=== PATIENT | female | born 1985 | race Caucasian/White ===

== ENCOUNTER 2019-06-29 13:48 | Emergency (ER) | payer OTHER ==
[2019-06-29 13:52] VITALS: BP 138/92; PULSE 82; TEMP 98.3; BMI 32.3
[2019-06-29] MEDS ORDERED: KETOROLAC TROMETHAMINE 30 MG/1 ML VIAL IVPUSH ONE (14:17)
[2019-06-29] MEDS ORDERED: METOCLOPRAMIDE HCL INJECTION 10 MG/2 ML VIAL IVPUSH ONE (14:18)
[2019-06-29] MEDS ORDERED: KETOROLAC TROMETHAMINE 15 MG/ML VIAL ONE (14:22)
[2019-06-29] MEDS ORDERED: METOCLOPRAMIDE HCL INJECTION 10 MG/2 ML VIAL ONE (14:22)
[2019-06-29] MEDS ORDERED: SODIUM CHLORIDE 0.9% 500 ML INFUS.BAG IV ONE (14:22)
--- NOTE | 2019-06-29 14:26 | PDOC ---
History of Present Illness - General Chief Complaint: Headache Stated Complaint: HEADACHE X3 DAYS Time Seen by Provider: 06/29/19 14:06 - History of Present Illness Initial Comments: 06/29/19 14:22 CHIEF COMPLAINT: headache HISTORY OF PRESENT ILLNESS: 33 yo F with no significant PMH [facility] headache x 3 days. Patient denies any nausea or photophobia and reports that the pain is currently to her b/l temples and feels like "throbbing." Denies any change in vision, LOC, weakness. No recent travel or sick contacts. PAST MEDICAL HISTORY: Denies past medical history FAMILY HISTORY: Denies SOCIAL HISTORY: Denies tobacco, alcohol, illicit drug use. SURGICAL HISTORY: Denies ALLERGIES: No known drug allergies REVIEW OF SYSTEMS General/Constitutional: Denies fever or chills. Denies weakness, weight change. HEENT: Denies change in vision. Denies ear pain or discharge. Denies sore throat. Cardiovascular: Denies chest pain or shortness of breath. Respiratory: Denies cough, wheezing, or hemoptysis. Gastrointestinal: Denies nausea, vomiting, diarrhea or constipation. Denies rectal bleeding. Genitourinary: Denies dysuria, frequency, or change in urination. Musculoskeletal: Denies joint or muscle swelling or pain. Denies neck or back pain. Skin and breasts: Denies rash or easy bruising. Neurologic:Headache x 3 days. Denies vertigo, loss of consciousness, or loss of sensation. Psychiatric: Denies depression or anxiety. PHYSICAL EXAM General Appearance: Well-appearing, appropriately dressed. No apparent distress , no intoxication. HEENT: EOMI, PERRLA, normal ENT inspection, normal voice, TMs normal, pharynx normal. No conjunctival pallor. No photophobia, scleral icterus. Neck: Supple. Trachea midline. No tenderness, rigidity, carotid bruit, stridor , lymphadenopathy, or thyromegaly. Respiratory/Chest: Lungs CTAB. No shortness of breath, chest tenderness, respiratory distress, accessory muscle use. No crackles, rales, rhonchi, stridor , wheezing, dullness Cardiovascular: RRR. S1, S2. No JVD, murmur, bradycardia, tachycardia. Vascular Pulses: Dorsalis-Pedis (R): 2+, Dorsalis-Pedis (L): 2+ Gastrointestinal/Abdominal: Normal bowel sounds. Abdomen soft, non-distended. No tenderness or rebound tenderness. No organomegaly, pulsatile mass, guarding , hernia, hepatomegaly, splenomegaly. Lymphatic: No adenopathy, tenderness. Musculoskeletal/Extremities: Normal inspection. FROM of all extremities, normal capillary refill. Pelvis Stable. No CVA tenderness. No tenderness to extremities, pedal edema, swelling, erythema or deformity. Integumentary: Appropriate color, dry, warm. No cyanosis, erythema, jaundice or rash Neurologic: chart snatcher II-XII intact. Fully oriented, alert. Appropriate mood/affect. Motor strength 5/5. No appreciable EOM palsy, facial droop or sensory deficit. A&Ox3, follow commands, respond appropriately CN2-12: conjugate gaze, pupil round, equal and reactive to light. Visual field full to confrontation. EOMI without nystagmus, pursuit is smooth without saccade. Facial sensation and muscle activation intact bilaterally. Hearing intact bilaterally. Palate elevate symmetrically. Shoulder shrug and neck turn full strength. Tongue protrude midline. Motor: UE and LE strength 5/5 throughout bilaterally. Muscle tone and bulk normal. L shoulder abd 5/5 elbow F/E 5/5 wrist F/E 5/5 finger F/E 5/5 R shoulder abd 5/5 elbow F/E 5/5 wrist F/E 5/5 finger F/E 5/5 L hip F/E 5/5 knee F/E 5/5 ankle F/E 5/5 R hip F/E 5/5 knee F/E 5/5 ankle F/E 5/5 Sensory: pin prick & temp : BUE & BLE intact and equal bilaterally Vibration & propioception: intact bilaterally at 1st MCP and MTP joints. no sensory level noted on trunk Reflex: biceps brachioradialis triceps patellar achilles L 2+ 2+ 2+ 2+ 2+ R 2+ 2+ 2+ 2+ 2+ Plantar reflex downwards bilaterally. Cerebellar: Rapid-alternating movement with regular rhythm without bradykinesia. [id number] and [id number]-[id number] intact bilaterally without dysmetria or overshoot. Gait narrow based. No shuffling. Full hip flexion and knee flexion. Negative Romberg No involuntary movement noted. No pronator drift. No clonus. Past History - Past Medical History Allergies/Adverse Reactions: Allergies Allergy/AdvReac Type Severity Reaction Status Date / Time aspirin Allergy Verified 06/29/19 13:52 Home Medications: Ambulatory Orders No Home Medications 0 dose .ROUTE UTDICT 07/24/13 traMADol HCL [Ultram -] 50 mg PO Q6H #20 tablet 07/24/13 COPD: No - Suicide/Smoking/Psychosocial Hx Smoking Status: No Smoking History: Never smoked Number of Cigarettes Smoked Daily: 0 Information on smoking cessation initiated: No Hx Alcohol Use: No Drug/Substance Use Hx: No *Physical Exam - Vital Signs Last Vital Signs Temp Pulse Resp BP Pulse Ox 98.3 F 82 18 138/92 99 06/29/19 13:51 06/29/19 13:51 06/29/19 13:51 06/29/19 13:51 06/29/19 13:51 Medical Decision Making - Medical Decision Making 06/29/19 14:26 33 yo F with no significant PMH presents to [facility] with intermittent headache x 3 days. -upreg -IVF, toradol, reglan, benadryl 06/29/19 15:02 PAtient reassessed after administration of medications. Patient states she is feeling better and is ready to go home. Advised patient to take medication as prescribed and follow up with neurology if symptoms persist. Advised patient of signs and symptoms for return to ED. Patient verbalized understanding and agrees to plan. *DC/Admit/Observation/Transfer Diagnosis at time of Disposition: Tension headache - Discharge Dispostion Disposition: HOME Condition at time of disposition: Stable Decision to Admit order: No - Referrals Referrals: Marlo Celaya MD [Staff Physician] - - Patient Instructions Printed Discharge Instructions: DI for Hormonal and Tension Headaches Additional Instructions: Please follow up with your primary care doctor this week. If you have recurrent headaches, please follow up with neurology. If you develop any change in vision, difficulty speaking or walking, weakness to one side, slurred speech, or any new or worsening symptoms, please return to the ER immediately. - Post Discharge Activity
== END 2019-06-29 15:30 | disposition home or self-care (01) ==
LOC: JERFT 13:48
PROC: 3E0333Z Introduction of Anti-inflammatory into Peripheral Vein, Percutaneous Approach (ICD-10-PCS; principal; 2019-06-29)
PROC: 3E033GC Introduction of Other Therapeutic Substance into Peripheral Vein, Percutaneous Approach (ICD-10-PCS; 2019-06-29)
PROC: 3E033GC Introduction of Other Therapeutic Substance into Peripheral Vein, Percutaneous Approach (ICD-10-PCS; 2019-06-29)
PROC: 3E0337Z Introduction of Electrolytic and Water Balance Substance into Peripheral Vein, Percutaneous Approach (ICD-10-PCS; 2019-06-29)
DX: G44.209 Tension-type headache, unspecified, not intractable (principal)
CPT/HCPCS: 84703; 96374; 96375; 99282-25